=== PATIENT | male | born 1955 | race Caucasian/White ===

== ENCOUNTER → 2016-10-17 | Outpatient (CLI) | payer OTHER ==
--- NOTE | 2016-10-17 12:31 | REP ---
CHEST, TWO VIEWS: HISTORY: Left lung atelectasis. COMPARISON: 04/12/2016. A large ill-defined mass is again seen in the left lower hemithorax unchanged compared to the previous study. Linear density is present superior to the mass consistent with atelectasis. The right lung is clear. The heart is normal in size. The pulmonary vasculature is normal in appearance. The bony structure is intact. IMPRESSION: 1. There is an ill-defined left lower lung mass unchanged compared to the previous study. CT of the chest is recommended for further evaluation. 2. Left lower lobe atelectasis unchanged compared to the previous study.
== END ==
LOC: M CLY 09:53
PROVIDERS: ATTEND Family Medicine
DX: J98.11 Atelectasis (principal)

== ENCOUNTER → 2024-03-18 | Outpatient (REF) | payer MEDICARE | LOC: M SFHCCLAY 15:55 | PROVIDERS: ATTEND Family Medicine | DX: Z00.00 Encounter for general adult medical examination without abnormal findings (principal); Z12.5 Encounter for screening for malignant neoplasm of prostate; E78.2 Mixed hyperlipidemia; I10 Essential (primary) hypertension; Z53.9 Procedure and treatment not carried out, unspecified reason ==

== ENCOUNTER → 2024-04-01 | Outpatient (CLI) | payer MEDICARE | LOC: M CARPUL 10:33 | PROVIDERS: ATTEND Family Medicine | DX: R01.1 Cardiac murmur, unspecified (principal) ==

== ENCOUNTER → 2024-07-09 | Outpatient (REF) | payer MEDICARE | LOC: M SFHCCLAY 09:22 | PROVIDERS: ATTEND Physician Assistant | DX: Z83.2 Family history of diseases of the blood and blood-forming organs and certain disorders involving the immune mechanism (principal) ==

== ENCOUNTER → 2025-03-20 | Outpatient (REF) | payer MEDICARE ==
[2025-03-20 18:56] LABS: ESTIMATED AVERAGE GLUCOSE 111.0 MG/DL (60-110)
[2025-03-20 19:06] LABS: PSA SCREENING 3.17 NG/ML (< 4.00)
[2025-03-20 19:11] LABS: ALT/SGPT < 9 U/L (7.0-40); AST/SGOT 14 U/L (<34); CALCIUM LEVEL 9.2 MG/DL (8.3-10.6); CARBON DIOXIDE LEVEL 29 MMOL/L (20-31); CHLORIDE LEVEL 109 MMOL/L (98-107); CHOLESTEROL LEVEL 160 MG/DL (<200); CHOLESTEROL RISK RATIO 3.17 (<5); CREATININE FOR GFR 0.67 MG/DL (0.70-1.30); GLOMERULAR FILTRATION RATE > 90.0 (>49); LDL CHOLESTEROL 94.0 MG/DL (<100); NON-HDL-C 109.6 MG/DL; POTASSIUM SERUM 4.2 MMOL/L (3.5-5.1); SODIUM LEVEL 142 MMOL/L (136-145); TRIGLYCERIDES LEVEL 78 MG/DL (<150)
== END ==
LOC: M SFHCCLAY 10:27
PROVIDERS: ATTEND Physician Assistant
DX: Z00.00 Encounter for general adult medical examination without abnormal findings (principal); E78.2 Mixed hyperlipidemia; I10 Essential (primary) hypertension; Z12.5 Encounter for screening for malignant neoplasm of prostate; G20.A1 Parkinson's disease without dyskinesia, without mention of fluctuations
CPT/HCPCS: 80053; 80061; 83036; G0103